=== PATIENT | male | born 2005 | race Asian ===

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

== ENCOUNTER 2024-11-25 08:10 | Emergency (ER) | payer MEDICAID ==
[~2024-11-25] VITALS: Ht 162.6 cm; Wt 123.2 kg
[2024-11-25 08:39] VITALS: BP 128/79; PULSE 95; RESP 17; TEMP 98.5; O2SAT 97
--- NOTE | 2024-11-25 09:32 | ED.PDOC ---
History of Present Illness(SKN HPI Comments 19 year old male with hx of autism BIB mother for abscess to the left gluteal region x 2 days. Chief Complaint: Abscess Time Seen by MD: 08:20 Primary Care Provider: stephanie History of Present Illness: Nurses Notes, Medications, Allergies Allergies: Coded Allergies: NO KNOWN ALLERGIES (Unverified , 11/07/19) Information Source: Patient Mode of Arrival: Ambulatory Severity: Moderate Timing: Days Duration: Days Location: Buttock (Left gluteal ) Developed: Generalized erythema Object: Unknown Condition of Object: None Retained Foreign Body: No Wound Type: Abscess Immunization Status of Animal: Current History of: None Associated Signs and Symptoms: None Past Medical History PAST MEDICAL HISTORY: Denies Surgical History: Denies all surgeries Family History Family History: Reviewed,noncontributory to illness, No family hx of Cancer, No family hx of DM, No family hx of Heart faustina, No family hx of HTN, No family hx ofKidney faustina, No family hx of Liver faustina, No family hx of Lung faustina, No family hx of Stroke Social History Smoker: Non-Smoker Alcohol: Denies ETOH Use Drugs: Denies Drug Use Lives In: Home All Other Systems: Reviewed and Negative (per HPI) Physical Exam General Appearance: No Apparent Distress, Normal HEENT: Normal ENT Inspection, Pharynx Normal, TMs Normal Neck: Full Range of Motion, Non-Tender, Normal, Normal Inspection Respiratory: Chest Non-Tender, Lungs Clear, No Accessory Muscle Use, No Respiratory Distress, Normal Breath Sounds Cardiovascular: No Edema, No JVD, No Murmur, No Gallop, Normal Peripheral Pulses, Regular Rate/Rhythm Breast Exam: Deferred Gastrointestinal: No Organomegaly, Non Tender, No Pulsatile Mass, Normal Bowel Sounds, Soft Genitalia: Deferred Pelvic: Deferred Rectal: Deferred Extremities: No calf tenderness, Normal capillary refill, Normal inspection, Normal range of motion, Non-tender, No pedal edema Musculoskeletal : Apperance: Normal Neurologic: Alert, manager video games II-XII nml as Tested, No Motor Deficits, Normal Affect, Normal Mood, No Sensory Deficits Cerebellar Function: Normal Reflexes: Normal Skin: Dry, Normal Color, Warm Lymphatic: No Adenopathy Was a procedure done? Was a procedure done?: Yes Sedation Sedation?: No Incision and Drainage Incision and Drainage: Abscess Location left gluteal Anesthetic: Lidocaine Preparation: Betadine, Saline Incision and Wound: Pus, Blood Informed consent obtained: Yes Risks/benefits/alt described: Yes Differential Diagnosis (INTG) Differential Diagnosis: Other X-Ray, Labs, Meds, VS Vital Signs Date Time Temp Pulse Resp B/P (MAP) Pulse Ox O2 Delivery O2 Flow Rate FiO2 11/25/24 08:39 98.5 95 17 128/79 (95) 97 98.5 11/25/24 08:39 95 17 97 Room Air 11/25/24 08:19 98.5 95 17 128/79 (95) 97 Current Medications Medications (Trade) Dose Ordered Sig/Ronny Route Start Time Stop Time Status Last Admin Lidocaine HCl (Xylocaine 1%) 5 ml ONCE ONCE ID 11/25/24 09:30 11/25/24 09:31 DC 11/25/24 09:33 Ceftriaxone Sodium (Rocephin) 1,000 mg ONCE ONCE IM 11/25/24 09:30 11/25/24 09:31 DC 11/25/24 09:33 X-Ray, Labs, Meds, VS Comment History and physical exam consistent with abscess of the mother gave verbal consent for incision and drainage. Incision done via sterile technique. 1 cm incision and took out abscess fluid amounting to 15 cc of serosanguineous fluid. Iodoform gauze was placed and covered by gauze and Tegaderm Patient tolerated the procedure well via universal protocols no complications noted Patient was given rocephin here in the emergency department and [place] for pain control Patient was discharged with Bactrim and advised to follow-up with his PCP in 2 days for reevaluation of the wound Patient also advised to follow-up in the emergency department for follow-up he is unable to be seen by his PCP Time of 1ST Reevaluation: 09:32 Reevaluation 1ST: Improved Patient Education/Counseling: Diagnosis, Treatment Family Education/Counseling: Diagnosis, Treatment Departure 1 Departure Time of Disposition: 10:06 Impression: Primary Impression: Abscess Disposition: 01 HOME / SELF CARE / HOMELESS Condition: Stable e-Prescriptions Acetaminophen (Acetaminophen) 500 Mg Tab 500 MG PO Q4HP PRN for 10 Days, #50 TAB 0 Refills Prov: LISA LEO PLATING TECHNICIAN 11/25/24 Sulfamethoxazole W/Trimethopri (Bactrim Ds Tablet) 1 Tab Tb 1 TAB PO BID for 7 Days, #14 TAB 0 Refills Prov: LISA LEO NP 11/25/24 Discharged With: Relative (Mother) Critical Care Note Critical Care Time?: No Stability Stability form required: No Heart Score Heart Score: Heart Score Response (Comments) Value History N/A 0 EKG N/A 0 Age N/A 0 Risk Factors N/A 0 Troponin N/A 0 Total 0 LISA LEO NP Nov 25, 2024 09:32
[2024-11-25] MEDS: LIDOCAINE 1% HCL (LOCAL ANESTH.) INJ 20ML MDV ID ONE (09:33)
[2024-11-25] MEDS: cefTRIAXone SOD 1,000 MG VL IM ONE (09:33)
[2024-11-25] MEDS ORDERED: BACDST PO (10:06)
[2024-11-25] MEDS ORDERED: ACET500T58 PO (10:06)
[2024-11-25] MEDS: HYDROcodone-ACET 5/325MG TAB PO ONE (10:17)
== END 2024-11-25 10:18 | disposition home or self-care (01) ==
LOC: ER 08:10
DX: L02.31 Cutaneous abscess of buttock (principal)
CPT/HCPCS: 10060; 96372; 99283; J0696; J2003

== ENCOUNTER 2024-11-27 09:00 | Emergency (ER) | payer MEDICAID ==
[~2024-11-27] VITALS: Ht 167.6 cm; Wt 122.4 kg
[~2024-11-27 09:00] MED LIST: ACET500T58 PO; BACDST PO
[2024-11-27 10:57] VITALS: BP 133/82; PULSE 81; RESP 18; TEMP 98; O2SAT 98
--- NOTE | 2024-11-27 10:57 | ED.PDOC ---
History of Present Illness(SKN HPI Comments wound check. seen 2 days ago for I&D. no other complaint Chief Complaint: Wound Check Time Seen by MD: 09:32 Primary Care Provider: AMAYA History of Present Illness: Nurses Notes, Medications, Allergies Allergies: Coded Allergies: NO KNOWN ALLERGIES (Unverified , 11/07/19) Home Meds Active Scripts Acetaminophen (Acetaminophen) 500 Mg Tab, 500 MG PO Q4HP PRN for 10 Days, #50 TAB 0 Refills Prov:LISA LEO BORING MACHINE SET UP OPERATOR JIG 11/25/24 Sulfamethoxazole W/Trimethopri (Bactrim Ds Tablet) 1 Tab Tb, 1 TAB PO BID for 7 Days, #14 TAB 0 Refills Prov:LISA LEO BORING MACHINE SET UP OPERATOR JIG 11/25/24 Information Source: Relative (Mother) Mode of Arrival: Ambulatory Past Medical History PAST MEDICAL HISTORY: Denies Surgical History: Denies all surgeries Family History Family History: Reviewed,noncontributory to illness, No family hx of Cancer, No family hx of DM, No family hx of Heart faustina, No family hx of HTN, No family hx ofKidney faustina, No family hx of Liver faustina, No family hx of Lung faustina, No family hx of Stroke Social History Smoker: Non-Smoker Alcohol: Denies ETOH Use Drugs: Denies Drug Use Lives In: Home All Other Systems: Reviewed and Negative (per hpi) Physical Exam General Appearance: No Apparent Distress, Normal HEENT: Normal ENT Inspection, Pharynx Normal, TMs Normal Neck: Full Range of Motion, Non-Tender, Normal, Normal Inspection Respiratory: Chest Non-Tender, Lungs Clear, No Accessory Muscle Use, No Respiratory Distress, Normal Breath Sounds Cardiovascular: No Edema, No JVD, No Murmur, No Gallop, Normal Peripheral Pulses, Regular Rate/Rhythm Breast Exam: Deferred Gastrointestinal: No Organomegaly, Non Tender, No Pulsatile Mass, Normal Bowel Sounds, Soft Genitalia: Deferred Pelvic: Deferred Rectal: Deferred Extremities: No calf tenderness, Normal capillary refill, Normal inspection, Normal range of motion, Non-tender, No pedal edema Musculoskeletal : Apperance: Normal Neurologic: Alert, operations director II-XII nml as Tested, No Motor Deficits, Normal Affect, Normal Mood, No Sensory Deficits Cerebellar Function: Normal Reflexes: Normal Skin: Dry, Normal Color, Warm Lymphatic: No Adenopathy Was a procedure done? Was a procedure done?: No Differential Diagnosis (INTG) Differential Diagnosis: Other X-Ray, Labs, Meds, VS Vital Signs Date Time Temp Pulse Resp B/P (MAP) Pulse Ox O2 Delivery O2 Flow Rate FiO2 11/27/24 10:57 81 18 98 Room Air 11/27/24 10:57 98.0 81 18 133/82 (99) 98 98.0 11/27/24 09:15 98.0 81 18 133/82 (99) 98 X-Ray, Labs, Meds, VS Comment no sings of infection. cleansed. repacked. F/u 2 days . sooner if symptoms worsen. Time of 1ST Reevaluation: 10:50 Reevaluation 1ST: Improved Patient Education/Counseling: Diagnosis, Treatment Family Education/Counseling: Diagnosis, Treatment Departure 1 Departure Time of Disposition: 10:57 Impression: Primary Impression: Wound check, abscess Disposition: 01 HOME / SELF CARE / HOMELESS Condition: Stable Discharged With: Relative (Mother) Critical Care Note Critical Care Time?: No Stability Stability form required: No Heart Score Heart Score: Heart Score Response (Comments) Value History N/A 0 EKG N/A 0 Age N/A 0 Risk Factors N/A 0 Troponin N/A 0 Total 0 LISA LEO NP Nov 27, 2024 10:57
== END 2024-11-27 10:57 | disposition home or self-care (01) ==
LOC: ER 09:00
DX: Z48.817 Encounter for surgical aftercare following surgery on the skin and subcutaneous tissue (principal)

== ENCOUNTER 2024-11-30 09:00 | Emergency (ER) | payer MEDICAID ==
[~2024-11-30] VITALS: Ht 165.1 cm; Wt 122.0 kg
[2024-11-30 09:10] VITALS: BP 135/69; PULSE 87; RESP 18; TEMP 97.5; O2SAT 95
--- NOTE | 2024-11-30 09:57 | ED.PDOC ---
History of Present Illness(SKN HPI Comments A 19-YEAR-OLD MALE PRESENTS WITH A CHIEF COMPLAINT OF PILONIDAL CYST DRAINAGE. PATIENTS MOTHER REPORTS THAT SHE WAS TOLD THAT SHE WAS TO BRING PATIENT EVERY 2 DAYS INTO THE ER TO HAVE THE PILONIDAL CYST DRAINED. PATIENT AND MOTHER WERE EDUCATED ON HOW TO CLEAN OUT AND CARE FOR THE PILONIDAL CYST. NO OTHER SYMPTOMS OR MODIFYING FACTORS PRESENT AT THIS TIME. Chief Complaint: Wound Check Time Seen by MD: 09:46 Primary Care Provider: AMAYA History of Present Illness: Nurses Notes, Medications, Allergies Allergies: Coded Allergies: NO KNOWN ALLERGIES (Unverified , 11/07/19) Home Meds Active Scripts Acetaminophen (Acetaminophen) 500 Mg Tab, 500 MG PO Q4HP PRN for 10 Days, #50 TAB 0 Refills Prov:LISA LEO OPTICAL GLASS ETCHER 11/25/24 Sulfamethoxazole W/Trimethopri (Bactrim Ds Tablet) 1 Tab Tb, 1 TAB PO BID for 7 Days, #14 TAB 0 Refills Prov:LISA LEO OPTICAL GLASS ETCHER 11/25/24 Information Source: Legal Guardian Mode of Arrival: Ambulatory Severity: Moderate Timing: Days Duration: Intermittent Prehospital treatment: None Location: Buttock Mechanism: Spontaneous Onset Occurence: Indoors Object: None Condition of Object: None Retained Foreign Body: Unknown Wound Type: Abscess Immunization Status of Animal: NA Tetanus: Unknown Associated Signs and Symptoms: None Past Medical History PAST MEDICAL HISTORY: Denies Surgical History: Denies all surgeries Family History Family History: Reviewed,noncontributory to illness, No family hx of Cancer, No family hx of DM, No family hx of Heart faustina, No family hx of HTN, No family hx ofKidney faustina, No family hx of Liver faustina, No family hx of Lung faustina, No family hx of Stroke Social History Smoker: Non-Smoker Alcohol: Denies ETOH Use Drugs: Denies Drug Use Lives In: Home Constitutional: denies: chills, diaphoresis, fatigue, fever, malaise, sweats, weakness, others EENTM: denies: blurred vision, double vision, ear bleeding, ear discharge, ear drainage, ear pain, ear ringing, eye pain, eye redness, hearing loss, mouth pain, mouth swelling, nasal discharge, nose bleeding, nose congestion, nose pain, photophobia, tearing, throat pain, throat swelling, voice changes, others Respiratory: denies: cough, hemoptysis, orthopnea, SOB at rest, shortness of breath, SOB with excertion, stridor, wheezing, others Cardiovascular: denies: chest pain, dizzy spells, diaphoresis, Dyspnea on exertion, edema, irregular heart beat, left arm pain, lightheadedness, palpitations, PND, syncope, others Gastrointestinal: denies: abdomen distended, abdominal pain, blood streaked bowels, constipated, diarrhea, dysphagia, difficulty swallowing, hematemesis, melena, nausea, poor appetite, poor fluid intake, rectal bleeding, rectal pain, vomiting, others Genitourinary: denies: burning, dysuria, flank pain, frequency, hematuria, incontinence, penile discharge, penile sore, pain, testicle pain, testicle swelling, urgency, others Neurological: denies: dizziness, fainting, headache, left sided numbness, left sided weakness, numbness, paresthesia, pre-existing deficit, right sided numbness, right sided weakness, seizure, speech problems, tingling, tremors, weakness, others Musculoskeletal: denies: back pain, gout, joint pain, joint swelling, muscle pain, muscle stiffness, neck pain, others Integumetry: reports: wounds (PILONIDAL CYST ); denies: bruises, change in color, change in hair/nails, dryness, laceration, lesions, lumps, rash, others Allergic/Immunocompromised: denies: Difficulty Healing, Frequent Infections, Hives, Itching, others Hematologic/Lymphatic: denies: anemia, blood clots, easy bleeding, easy bruising, swollen glands, others Endocrine: denies: excessive hunger, excessive sweating, excessive thirst, excessive urination, flushing, intolerance to cold, intolerance to heat, unexplained weight gain, unexplained weight loss, others Psychiatric: denies: anxiety, bipolar disorder, depression, hopeless, panic disorder, schizophrenia, sleepless, suicidal, others All Other Systems: Reviewed and Negative Physical Exam General Appearance: No Apparent Distress, Obese HEENT: Normal ENT Inspection, PERRL/EOMI, Pharynx Normal, TMs Normal Neck: Full Range of Motion, Non-Tender, Normal, Normal Inspection Respiratory: Chest Non-Tender, Lungs Clear, No Accessory Muscle Use, No Respiratory Distress, Normal Breath Sounds Cardiovascular: No Edema, No JVD, No Murmur, No Gallop, Normal Peripheral Pulses, Regular Rate/Rhythm Breast Exam: Deferred Gastrointestinal: No Organomegaly, Non Tender, No Pulsatile Mass, Normal Bowel Sounds, Soft Genitalia: Deferred Pelvic: Deferred Rectal: Deferred Extremities: No calf tenderness, Normal capillary refill, Normal inspection, Normal range of motion, Non-tender, No pedal edema Musculoskeletal : Apperance: Normal Neurologic: Alert, spray blender II-XII nml as Tested, No Motor Deficits, Normal Affect, Normal Mood, No Sensory Deficits Cerebellar Function: Normal Reflexes: Normal Skin: Dry, Normal Color, Warm, Wounds (ABSCESS WOUND ON TAIL BONE REGION, HEA LING ABSCESS, NO REDNESS AND SWELLING. ) Peripheral Pulses: 2+ carotid (R), 2+ carotid (L) Lymphatic: No Adenopathy Was a procedure done? Was a procedure done?: No Differential Diagnosis (INTG) Differential Diagnosis: Puncture Wound Abscess: Abscess, Other (ABSCESS WOUND RECHECK ) X-Ray, Labs, Meds, VS Vital Signs Date Time Temp Pulse Resp B/P (MAP) Pulse Ox O2 Delivery O2 Flow Rate FiO2 11/30/24 09:10 97.5 87 18 135/69 (91) 95 97.5 11/30/24 09:10 87 18 95 Room Air 0 11/30/24 09:10 97.5 87 18 135/69 (91) 95 Time of 1ST Reevaluation: 10:10 Reevaluation 1ST: Improved Patient Education/Counseling: Diagnosis, Treatment, Need For Follow Up Family Education/Counseling: Diagnosis, Treatment, Need For Follow Up Medical Screening: No EMC Exist At This Time Departure 1 Departure Time of Disposition: 10:10 Impression: Primary Impression: Wound check, abscess Disposition: 01 HOME / SELF CARE / HOMELESS Condition: Stable Additional Instructions: FOLLOW UP WITH YOUR PCP IN 1-2 DAYS. RETURN TO THE ER IF YOUR SYMPTOMS WORSEN. Discharged With: Self, Relative (Mother) Critical Care Note Critical Care Time?: No Stability Stability form required: No Heart Score Heart Score: Heart Score Response (Comments) Value History N/A 0 EKG N/A 0 Age N/A 0 Risk Factors N/A 0 Troponin N/A 0 Total 0 I personally scribed for CELSO ELIZONDO ([email or web address]) on 11/30/24 at 09:57. Electronically submitted by Hermilo Hamlin ([email or web address]). CELSO ELIZONDO Nov 30, 2024 09:57
== END 2024-11-30 10:02 | disposition home or self-care (01) ==
LOC: ER 09:00
DX: L05.01 Pilonidal cyst with abscess (principal); Z48.01 Encounter for change or removal of surgical wound dressing; Z79.899 Other long term (current) drug therapy